=== PATIENT | female | born 1975 | race American Indian/Alaskan Native ===

== ENCOUNTER 2016-11-08 13:14 | Emergency (ER) | payer SELFPAY ==
[2016-11-08 13:29] VITALS: BP 136/69
== END 2016-11-08 18:43 | disposition left against medical advice (07) ==
LOC: ED 13:14
DX: F41.0 Panic disorder [episodic paroxysmal anxiety] (principal); R20.0 Anesthesia of skin; Z53.21 Procedure and treatment not carried out due to patient leaving prior to being seen by health care provider

== ENCOUNTER 2019-01-26 16:19 | Emergency (ER) | payer SELFPAY ==
--- NOTE | 2019-01-26 16:24 | Event Note ---
ED Screening Note ED Screening Note: fb r ear for days thinks is an ear bud This initial assessment/diagnostic orders/clinical plan/treatment(s) is/are subject to change based on patients health status, clinical progression and re- assessment by fellow clinical providers in the ED. Further treatment and workup at subsequent clinical providers discretion. Patient/guardian urged not to elope from the ED as their condition may be serious if not clinically assessed and managed. Initial orders include: acc
[2019-01-26 16:25] VITALS: BP 126/60
[2019-01-26] MEDS ORDERED: IBUPROFEN PO ONE (17:17)
--- NOTE | 2019-01-26 19:24 | Emergency Department Report ---
ED ENT HPI - General Chief complaint: Earache Stated complaint: (R) EAR PAIN Time Seen by Provider: 01/26/19 16:23 Source: patient Mode of arrival: Ambulatory Limitations: No Limitations - History of Present Illness Initial comments: 43-year-old female was admitted from complaining of pain to her right ear, which she thinks might be some retained air. Blood step broke and when she was pulling them out. She's been trying to get them out for the last 7 days and reports expansion some trauma to her ear and in doing so. She reports no loss of hearing, no dizziness. No sore throat. No neck pain, no headaches or blurred vision. No current discharge or bleeding MD complaint: ear pain Location: R ear Severity: mild Quality: aching, dull Consistency: constant Improves with: none Worsens with: none Associated Symptoms: denies: gum swelling, sore throat, tinnitus, rhinorrhea - Related Data Previous Rx's Medication Instructions Recorded Last Taken Type Cyclobenzaprine HCl [Flexeril 5 MG 5 mg PO TID #14 tab 08/03/16 Unknown Rx TAB] Naproxen [Naprosyn] 500 mg PO BID #30 tablet 08/03/16 Unknown Rx Nitrofurantoin [place]/M-Cryst 100 mg PO Q12HR #10 capsule 08/03/16 Unknown Rx [Macrobid CAP] Neomy/Polymyx B/Hc (Otic) Soln 4 drops AD TID #1 bottle 01/26/19 Unknown Rx [Cortisporin (Otic) Soln] Allergies Allergy/AdvReac Type Severity Reaction Status Date / Time No Known Allergies Allergy Verified 08/02/16 18:43 ED Dental HPI - General Chief complaint: Earache Stated complaint: (R) EAR PAIN Time Seen by Provider: 01/26/19 16:23 Source: patient Mode of arrival: Ambulatory Limitations: No Limitations - Related Data Previous Rx's Medication Instructions Recorded Last Taken Type Cyclobenzaprine HCl [Flexeril 5 MG 5 mg PO TID #14 tab 08/03/16 Unknown Rx TAB] Naproxen [Naprosyn] 500 mg PO BID #30 tablet 08/03/16 Unknown Rx Nitrofurantoin [place]/M-Cryst 100 mg PO Q12HR #10 capsule 08/03/16 Unknown Rx [Macrobid CAP] Neomy/Polymyx B/Hc (Otic) Soln 4 drops AD TID #1 bottle 01/26/19 Unknown Rx [Cortisporin (Otic) Soln] Allergies Allergy/AdvReac Type Severity Reaction Status Date / Time No Known Allergies Allergy Verified 08/02/16 18:43 ED Review of Systems ROS: Stated complaint: (R) EAR PAIN Other details as noted in HPI Comment: All other systems reviewed and negative ED Past Medical Hx - Past Medical History Hx Hypertension: Yes Hx Psychiatric Treatment: Yes Additional medical history: hearing loss--"STOMPED IN HEAD" - Surgical History Additional Surgical History: x 4. TUBAL LIGATION - Social History Smoking Status: Never Smoker Substance Use Type: Alcohol - Medications Home Medications: Home Medications Medication Instructions Recorded Confirmed Last Taken Type Cyclobenzaprine HCl [Flexeril 5 MG 5 mg PO TID #14 tab 08/03/16 Unknown Rx TAB] Naproxen [Naprosyn] 500 mg PO BID #30 tablet 08/03/16 Unknown Rx Nitrofurantoin [place]/M-Cryst 100 mg PO Q12HR #10 capsule 08/03/16 Unknown Rx [Macrobid CAP] Neomy/Polymyx B/Hc (Otic) Soln 4 drops AD TID #1 bottle 01/26/19 Unknown Rx [Cortisporin (Otic) Soln] ED Physical Exam - General Limitations: No Limitations General appearance: alert, in no apparent distress - Head Head exam: Present: atraumatic, normocephalic - Eye Eye exam: Present: normal appearance, PERRL, EOMI Pupils: Present: normal accommodation - ENT ENT exam: Present: mucous membranes moist, other (right ear canal O abrasion to examination. No visible foreign bodies identified. No perforated eardrum. No mastoid tenderness. No pre-or postauricular lymphadenopathy.) - Neck Neck exam: Present: normal inspection, full ROM. Absent: tenderness - Respiratory Respiratory exam: Present: normal lung sounds bilaterally. Absent: respiratory distress - Cardiovascular Cardiovascular Exam: Present: regular rate, normal rhythm. Absent: systolic murmur, diastolic murmur, rubs, gallop - GI/Abdominal GI/Abdominal exam: Present: soft, normal bowel sounds. Absent: distended, tenderness, hyperactive bowel sounds, hypoactive bowel sounds, organomegaly - Extremities Exam Extremities exam: Present: normal inspection - Back Exam Back exam: Present: normal inspection - Neurological Exam Neurological exam: Present: alert, oriented X3 - Psychiatric Psychiatric exam: Present: normal affect, normal mood - Skin Skin exam: Present: warm, dry, intact, normal color. Absent: rash ED Course Vital Signs 01/26/19 16:23 Temperature 98.4 F Pulse Rate 66 Respiratory 18 Rate Blood Pressure 126/60 O2 Sat by Pulse 100 Oximetry Critical care attestation.: If time is entered above; I have spent that time in minutes in the direct care of this critically ill patient, excluding procedure time. ED Disposition Clinical Impression: Ear canal abrasion Disposition: [id number] TO HOME OR SELFCARE Is pt being admited?: No Does the pt Need Aspirin: No Condition: Stable Instructions: Earache (ED) Prescriptions: Neomy/Polymyx B/Hc (Otic) Soln [Cortisporin (Otic) Soln] 4 drops AD TID #1 bottle Referrals: [facility] [Provider Group] - 3-5 Days
== END 2019-01-26 19:45 | disposition home or self-care (01) ==
LOC: ED 16:19
DX: S00.411A Abrasion of right ear, initial encounter (principal); I10 Essential (primary) hypertension; Z98.51 Tubal ligation status; Z79.899 Other long term (current) drug therapy; X58.XXXA Exposure to other specified factors, initial encounter; Y93.89 Activity, other specified; Y92.89 Other specified places as the place of occurrence of the external cause; Y99.8 Other external cause status
CPT/HCPCS: 99282